=== PATIENT | female | born 1950 | race Caucasian/White ===

== ENCOUNTER 2021-02-23 07:15 | Day surgery (SDC) | payer MEDICARE ==
--- NOTE | 2021-02-10 13:46 | NUR ---
DOS:02/23/21 STAIRS: HAS MANY BUT 3 TO GET INTO THE HOME AND WHEN WILL LIVE ON THE MAIN FLOOR TILL SHE HAS INPROVED MOVEMENT SHOWER: STEP OVER WITH SHOWER CHAIR TOILET: HAS A RISER aPPOINTMENT AND PHYSICAL THERAPY: PT SISTER WILL DRIVE HER TO ALL ACTIVITES TILL PT IS ABLE TO DRIVE. PT LIVES HOME ALONE, BUT SISTER WILL HELP HER SHE NEEDS. PT WILL COME TO TOWN ON THE AND STAY AT A HOTEL BEFORE SURGERY, BUT PLANS ON TO GO ALL THE WAY HOME AFTER SURGERY. PT LIVES IN [facility].
[~2021-02-23] VITALS: Ht 152.4 cm; Wt 61.4 kg
[~2021-02-23 07:15] MED LIST: BAYER CHEWABLE81 MG PO; CITALOPRAM HBR10 MG PO; LEVOTHYROXINE88 MC1 PO; METOPROLOL SUCC25 MG PO; PRESERVISION A1 EAC1 PO
[2021-02-23] MEDS ORDERED: SENNA LAX8.6 MG PO (11:04)
[2021-02-23] MEDS ORDERED: XARELTO10 MG PO (11:04)
[2021-02-23] MEDS ORDERED: CELECOXIB200 MG PO (11:04)
[2021-02-23] MEDS ORDERED: GABAPENTIN300 MG PO (11:04)
[2021-02-23] MEDS ORDERED: OXYCODONE HCL5 MG PO (11:06)
--- NOTE | 2021-02-23 11:08 | NUR ---
02/23/21 1108 Valerie Eller 1057- PT ARRIVES TO PACU AWAKE AND TALKING. PT REPORTS NO PAIN OR NAUSEA. RESP EVEN AND UNLABORED. OXYGEN SAT MID 90'S TO 100% ON RA. PT FALLS TO SLEEP WHEN NOT BEING TALKED TO. ON Q PUMP INFUSING AT 4 ML/HR. 1104- CAITLIN HOSE, FOOT PUMP, AND CRYOCUFF PLACED TO PT'S RIGHT KNEE/ LEG BY KALINA OSPINA RN. PT TOLERATED WELL. DRESSING IN BETWEEN SKIN AND CRYOCUFF.
--- NOTE | 2021-02-23 11:37 | NUR ---
PT IS BACK TO DS FROM PACU. SHE IS BACK TO HER BASELINE, HER SPINAL IS ABOUT A LEVEL L2, SHE IS STARTING TO BE ABLE TO WIGGLE HER TOES. SHE HAS WATER ON BEDSIDE TABLE. CALL LIGHT WITHIN REACH. ILIANA HUGGER WARMER ON. SHE WOULD LIKE A SNACK. NO ADDITIONAL NEEDS AT THIS TIME. YESSENIA ALICIA IS AT THE BEDSIDE. DISCHARGE CRITERIA IS DISCUSSED WITH PATIENT AND YESSENIA.
--- NOTE | 2021-02-23 11:59 | NUR ---
lunch taken in to pt. no other needs at this time
--- NOTE | 2021-02-23 12:15 | NUR ---
pt requested a cup of ice for her pepsi. no other needs at this time
--- NOTE | 2021-02-23 12:29 | NUR ---
pt vitals taken. pt ate 100% of lunch. no other needs at this time. call light with in reach
--- NOTE | 2021-02-23 13:00 | NUR ---
LE 1230: PT IS DOING WELL, NO C/O'S PAIN. SHE IS TOLERATING FOOD AND WATER. HER SPINAL HAS RESOLVED. SHE IS READY TO WORK WITH PHYSICAL THERAPY
--- NOTE | 2021-02-23 13:26 | NUR ---
vitals taken. no other needs at this time
--- NOTE | 2021-02-23 13:35 | NUR ---
PT IS DOING WELL, NO C/O'S. SHE IS READY TO WORK WITH PHYSICAL THERAPY.
--- NOTE | 2021-02-23 14:14 | NUR ---
JOSE 1350: PT IS UP WITH PHYSICAL THERAPY TO THE BATHROOM WHERE SHE VOIDS 400MLS. SHE LEAVES TO GO WORK WITH PHYSICAL THERAPY. PHYSICAL THERAPY HAS CLEARED HER TO [place] HOME.
--- NOTE | 2021-02-23 15:03 | NUR ---
PT IS GIVEN VERBAL DC INSTRUCTIONS WITH YESSENIA PRESENT. THEY BOTH VERBALIZE UNDERSTANDING. QUESTIONS ARE ASKED AND ANSWERED. PT IS TAKEN TO VEHICLE VIA WC BY AUTOMOTIVE SPECIALTY TECHNICIAN.
--- NOTE | 2021-02-27 06:57 | OR ---
[facility] [address], [place] [address] Signed DATE OF OPERATION: 02/23/2021 SURGEON: Prashant Dickey MD PREOPERATIVE DIAGNOSIS: Degenerative joint disease, right knee. POSTOPERATIVE DIAGNOSIS: Degenerative joint disease, right knee. PROCEDURE PERFORMED: Right total knee arthroplasty with Matthew. HYDROLOGIC MODELER: None. ANESTHESIA: Spinal. BLOOD LOSS: 175 mL. IMPLANTS: [place] Triathlon size 3 femur, 2 tibia, 9 mm polyethylene, and 29 mm patella. BRIEF HISTORY: Flavia is a 70-year-old female with progressive worsening of osteoarthritis in her knee. She had undergone nonoperative treatment without substantial relief. Risks, benefits, and alternatives of operative treatment were discussed with her and she elected to proceed. DESCRIPTION OF PROCEDURE: Once consent was obtained, she was taken to the operating room after adequate anesthesia. She was placed on the operating room table. All downside pressure points were well padded. Hip bump was placed under the right hip. The leg was then prepped and draped in a standard sterile fashion. The knee was approached through standard and anterior midline incision, carried through skin and subcutaneous tissue. Mid vastus approach was undertaken and the patella was mobilized laterally. The infrapatellar fat pad was excised and the MCL was elevated as a sleeve around to the posteromedial corner. Anterior horn of the lateral meniscus was transected as was the ACL. The knee was Electronically Signed By: PRASHANT DICKEY MD 02/27/21 0657 PATIENT NAME: FLAVIA ANTON OPERATIVE REPORT DATE OF : 52 REPORT #: [id number] PHYSICIAN: PRASHANT DICKEY MD PCP: OTHER PCP REPORT IS CONFIDENTIAL AND NOT TO BE RELEASED WITHOUT AUTHORIZATION [facility] [address], [place] [address] Signed flexed. The checkpoints were placed in the medial femoral condyle and proximal tibia. The navigation arrays were placed in the medial femoral condyle and in the proximal tibia 1 handbreadth below the tuberosity. The leg was then registered with the computer. The fine anatomic points of the knee were registered. Varus and valgus testing was undertaken to determine laxity, which was minimal. Balancing required only moving the femur down 1 mm. The robot was then brought in and the straight cuts were made with care taken to protect the patellar tendon and MCL. The 2 angle cuts were made. Any remaining osteophytes were removed. The bone piece was removed. The trials were then positioned and the knee was taken through range of motion from 0 to 145 degrees of flexion. She had excellent stability throughout. Her patella was cut sized and drilled for a 29 patella. The drill holes in the distal femur were made and the keel punch was used on the tibia. The bone was quite soft, so we elected to go with a hybrid prosthesis. The tibia and patella were then pulse lavaged, packed with a dry sponge and the cement was mixed. Once reached proper consistency, it was placed on the tibial and patellar implants as well as the bone. The tibia was impacted into position first followed by removal of all excess. The polyethylene was snapped into position and then the femur was impacted. The knee was extended and nicely loaded. The patella was clamped into position. Again, any remaining overflow was removed. Cement was allowed to harden for 11 minutes. The knee was then flexed and the remaining overflow was removed. The periarticular soft tissues were injected with 100 mL ropivacaine Toradol mixture. The knee was pulse lavaged at intervals with 3 L normal saline. The knee was then soaked with Aricept and the Aricept was pulse lavaged out. The On-Q pain pump was percutaneously placed into the adductor canal from the suprapatellar pouch. The arthrotomy was then closed using #2 Stratafix, #0 Stratafix for the subcutaneous tissue and benedicto for the skin. The wounds were dressed with Acticoat #7 dressing, ABD, and Emre wrap. She tolerated the procedure well. All sponge, needle, and instrument counts were correct. Prashant Dickey MD BA/MODL /[id number] Copies: Electronically Signed By: PRASHANT DICKEY MD 02/27/21 0657 PATIENT NAME: FLAVIA ANTON OPERATIVE REPORT DATE OF : 52 REPORT #: [id number] PHYSICIAN: PRASHANT DICKEY MD PCP: OTHER PCP REPORT IS CONFIDENTIAL AND NOT TO BE RELEASED WITHOUT AUTHORIZATION [facility] [address] [place] [address] [place], [place] [address] Signed ~ Electronically Signed By: PRASHANT DICKEY MD 02/27/21 0657 PATIENT NAME: FLAVIA ANTON OPERATIVE REPORT DATE OF : 52 REPORT #: [id number] PHYSICIAN: PRASHANT DICKEY MD PCP: OTHER PCP REPORT IS CONFIDENTIAL AND NOT TO BE RELEASED WITHOUT AUTHORIZATION
== END 2021-02-23 15:00 | disposition home or self-care (01) ==
LOC: DS 07:15
PROVIDERS: ATTEND Specialist
PROC: 0SRC06Z Replacement of Right Knee Joint with Oxidized Zirconium on Polyethylene Synthetic Substitute, Open Approach (ICD-10-PCS; principal; 2021-02-23 09:15)
DX: M17.11 Unilateral primary osteoarthritis, right knee (principal); J44.9 Chronic obstructive pulmonary disease, unspecified; E03.9 Hypothyroidism, unspecified; Z87.891 Personal history of nicotine dependence; Z96.643 Presence of artificial hip joint, bilateral; Z91.030 Bee allergy status
CPT/HCPCS: 01402; 64447; 64450; 76942; 97110; 97161; C1713; C1776; J0690; J1100; J2001; J2704; J2795; J7121